=== PATIENT | female | born 1985 | race Caucasian/White ===

== ENCOUNTER 2016-05-12 20:42 | Emergency (ER) | payer OTHER ==
[~2016-05-12] VITALS: Ht 165.1 cm; Wt 77.1 kg
[2016-05-12 22:29] LABS: ADD MIUA? YES; BILIRUBIN NEGATIVE; BLOOD SMALL; COLOR STRAW ((YELLOW)); GLUCOSE (STRIP) NEGATIVE; KETONES NEGATIVE; LEUKOCYTES SMALL; NITRITE NEGATIVE; PROTEIN (STRIP) NEGATIVE; SPECIFIC GRAVITY 1.004 (1.000-1.030); UROBILINOGEN 0.2 MG/DL (0.2-1.0)
[2016-05-12 22:34] LABS: BACTERIA RARE /HPF; EPITHELIAL CELLS RARE /HPF; MUCUS NONE SEEN /LPF; RED BLOOD CELLS 0-5 /HPF (0-5); UCUL ADDED? NO; WHITE BLOOD CELLS 0-5 /HPF (0-5)
[2016-05-13 00:18] VITALS: BP 136/64
== END 2016-05-13 00:19 | disposition home or self-care (01) ==
LOC: EME 20:42
PROVIDERS: Physician Assistant
DX: O26.893 Other specified pregnancy related conditions, third trimester (principal); M79.89 Other specified soft tissue disorders; M79.604 Pain in right leg; Z3A.38 38 weeks gestation of pregnancy
CPT/HCPCS: 81003; 93971; 99281; 99283

== ENCOUNTER 2016-05-15 11:16 | Inpatient (IN) | payer OTHER ==
[~2016-05-15] VITALS: Ht 162.6 cm; Wt 75.0 kg
[2016-05-15] VITALS (14 sets, daily range): BP systolic 122–143; BP diastolic 57–94
[2016-05-15 12:15] LABS: EOSINOPHIL (%) 0.1 % (0-5); IMMATURE GRANULOCYTE COUNT 0.1 K/uL; INSTRUMENT ABS NEUTROPHIL CT 8.8 K/uL; LYMPHOCYTE COUNT 1.9 K/uL (1.0-2.8); MCH 26.5 PG (29.0-34.0); MCV 82.9 FL (83-99); MEAN PLAT.VOLUME 11.6 uM^3 (9.5-12.4); MONOCYTE (%) 4.6 % (3-12); MONOCYTE COUNT 0.5 K/uL (0-0.8); NEUTROPHIL (%) 77.5 % (45-76); NEUTROPHIL COUNT 8.8 K/uL (1.8-6.4); PLATELET COUNT 295 K/uL (156-360); RBC DIS.WIDTH-CV 13.6 % (11.8-14.6); RBC DIS.WIDTH-SD 40.9 % (39-53); RED BLOOD COUNT 3.62 M/uL (3.80-5.20); WHITE BLOOD COUNT 11.3 K/uL (4.1-10.2)
[2016-05-15] MEDS ORDERED: PROBIOTIC1 EAC1 PO (12:31)
[2016-05-15] MEDS ORDERED: TUMS500 MG PO (12:32)
[2016-05-15] MEDS ORDERED: IBUPROFEN800 MG PO (17:40)
[2016-05-15] MEDS ORDERED: ENDOCET 5-3251 EACH PO (17:40)
[2016-05-16 07:15] LABS: EOSINOPHIL (%) 0.1 % (0-5); HEMATOCRIT 24.1 % (36.0-46.0); IMMATURE GRANULOCYTE (%) 0.9 % (0.0-0.7); IMMATURE GRANULOCYTE COUNT 0.1 K/uL; INSTRUMENT ABS NEUTROPHIL CT 11.4 K/uL; LYMPHOCYTE COUNT 2.7 K/uL (1.0-2.8); MCH 26.3 PG (29.0-34.0); MCHC 31.5 G/DL (30.0-36.0); MCV 83.4 FL (83-99); MONOCYTE (%) 5.7 % (3-12); MONOCYTE COUNT 0.9 K/uL (0-0.8); NEUTROPHIL COUNT 11.4 K/uL (1.8-6.4); NRBC (%) 0.1 /100 WBC (0-0); RBC DIS.WIDTH-SD 42.2 % (39-53)
[2016-05-16 07:16] VITALS: BP 125/68
[2016-05-16 07:20] LABS: RED BLOOD COUNT 2.89 M/uL (3.80-5.20); WHITE BLOOD COUNT 15.2 K/uL (4.1-10.2)
[2016-05-16 08:08] LABS: MEAN PLAT.VOLUME 12.2 uM^3 (9.5-12.4); PLAT.SUFFICIENCY ADEQUATE; PLATELET COUNT 235 K/uL (156-360)
[2016-05-16 15:00] VITALS: BP 120/58
[2016-05-16 22:37] VITALS: BP 117/59
[2016-05-17 06:15] VITALS: BP 121/64
== END 2016-05-17 15:15 | disposition home or self-care (01) | DRG 775 ==
LOC: LDRP-OP → 2WEST 11:17
PROVIDERS: Nurse Practitioner
DX: O63.1 Prolonged second stage (of labor) (principal); O70.1 Second degree perineal laceration during delivery; O69.81X0 Labor and delivery complicated by cord around neck, without compression, not applicable or unspecified; Z37.0 Single live birth; Z3A.38 38 weeks gestation of pregnancy; O99.824 Streptococcus B carrier state complicating childbirth; O99.02 Anemia complicating childbirth; D62 Acute posthemorrhagic anemia; Z88.0 Allergy status to penicillin
CPT/HCPCS: 85025; J3370; J7120